=== PATIENT | female | born 1990 | race Caucasian/White ===

== ENCOUNTER → 2017-05-04 | Outpatient (CLI) | payer BC ==
[2017-05-08 02:18] LABS: CHLAMYDIA TRACH RNA*** NOT DETECTED (NOT DETECTED); GC (NEIS GONORRHOEAE)RNA** NOT DETECTED (NOT DETECTED)
== END | disposition home or self-care (01) ==
LOC: C.LABSPEC 17:32
PROVIDERS: ATTEND Physician Assistant
DX: Z01.419 Encounter for gynecological examination (general) (routine) without abnormal findings (principal)

== ENCOUNTER → 2017-05-04 | Outpatient (CLI) | payer BC | END | disposition home or self-care (01) | LOC: C.PAPS 10:09 | PROVIDERS: ATTEND Physician Assistant | DX: Z01.411 Encounter for gynecological examination (general) (routine) with abnormal findings (principal); R87.610 Atypical squamous cells of undetermined significance on cytologic smear of cervix (ASC-US) ==

== ENCOUNTER 2024-07-10 03:39 | Observation (INO) ==
[2024-07-10] MEDS: ACETAMINOPHEN 500 MG TAB PO STA (04:20)
[2024-07-10] MEDS: SODIUM CHLORIDE 0.9% 500 ML IV ONE (04:21)
[2024-07-10] MEDS: KETOROLAC TROMETHAMINE 15 MG/ML VIAL IV STA (04:21)
[2024-07-10] MEDS: ONDANSETRON INJ 2 MG/ML 2 ML VIAL IV STA (04:21)
--- NOTE | 2024-07-10 04:21 | Emergency Department Note ---
Impression & Plan Acute appendicitis, Abdominal pain, Nausea, Diarrhea ED Provider Note NAME: JESENIA PANDYA AGE: 33 SEX: F : 1990 ARRIVES VIA: Walk-In INFORMANT: Patient, friend ED PROVIDER(S): Brody Dalton MD CHIEF COMPLAINT: Abdominal cramping, diarrhea, right lower quadrant pain MEDICAL DECISION MAKING: Patient presents for the above. Though the patient has had symptoms consistent with an enteritis the patient does appear to be focally tender in the right lower quadrant and does have positive obturators. IV was established and blood work was obtained along with CT abdomen pelvis. BioFire also performed. Patient was ordered IV Toradol fluids and Zofran and was given p.o. Tylenol. Upon assessment the patient did feel improved. The patient has a white count of 15 with a normal H&H and platelet count. Kidney function is unremarkable. Mild hyponatremia at 134 with a BSG 126 nonfasting not DKA. Urinalysis does not show evidence of obvious infection. BioFire negative. The patient CT abdomen and pelvis does show concerns for acute appendicitis. I did inform the patient of these findings. Patient pain is improved. I did speak the on-call general surgeon Dr. Rodriguez and the patient was to be taken to the OR for operative management. Prior to this the patient was ordered Mefoxin. Patient does have penicillin allergy but did discuss with pharmacy who stated it should be reasonable to monitor for symptoms. No symptoms while here in the department. Discussion w/ other healthcare providers: Dr. Rodriguez general surgery Prior /Outside records reviewed: none Differential diagnosis: Appendicitis, ovarian cyst, ovarian torsion, ectopic , TOA, PID, diverticulitis, UTI, obstruction, inflammatory bowel disease, renal colic, PUD, pancreatitis, biliary pathology, hernia, volvulus, constipation, as well as other pathologies were considered. Diagnostics, as interpreted by me: ECG: none Cardiac monitoring: An order was placed for continuous cardiac monitoring. The monitor shows a rate of 106 with tachycardic and regular rhythm. Patient was placed on pulse oximetry Medical decision rules: none Imaging studies: I informally interpreted the patient's CT abdomen pelvis does show concerns for acute appendicitis with formal report to follow. HPI: Patient presents due to concern for right lower quadrant pain and diarrhea. Patient states that about 2 nights ago the patient developed decreased appetite states that she ate a bowl of popcorn had a popsicle and then early yesterday morning the patient had diarrhea from about 2 to 10 AM. The patient is had no further diarrhea but did have some nausea but without vomiting. The patient states that she has had intense crampy pain primarily in her lower abdomen but more prominently focal in the right lower quadrant. Patient denies any blood in urine or stool and no dysuria. Patient [place] any vaginal bleeding or discharge. LMP was 2 weeks prior. Patient denies any trauma. No known sick contacts or any recent travel. No changes in diet. Patient denies any recent antibiotic use. Patient has been taking Pepto-Bismol at home. Patient states that because the cramps have been intense and more focal in the right lower quadrant which is why she presented today. PAST MEDICAL HISTORY: See Below PAST SURGICAL HISTORY: See Below SOCIAL HISTORY: See Below HOME MEDICATIONS: See Below ALLERGIES: See Below VITALS: See Below PHYSICAL EXAMINATION: GENERAL: NAD, non-toxic. EYE EXAM: Normal conjunctiva. PERRL, no anisocoria and EOM's grossly intact w/o pain. OROPHARYNX: Moist mucus membranes, grossly normal dentition. NECK: Trachea midline, no stridor. Supple, no nuchal rigidity, no adenopathy, non-tender. No signs of meningismus. FROM of the neck with good chin to chest and neck extension. LUNGS: Clear to auscultation. Normal chest wall mechanics. HEART: NSR, no MRG. ABDOMEN: Abdomen soft, suprapubic and right lower quadrant pain most prominent in the right lower quadrant without other abdominal pain, not peritonitic, positive obturators, negative psoas no masses, no rebound or guarding. BACK: No CVA TTP. SKIN: No rashes and no bruising. UPPER EXTREMITIES: Upper extremities are grossly normal. LOWER EXTREMITIES: Grossly normal, no edema. NEURO EXAM: A&O x3, cranial nerves II-XII grossly intact, normal speech, moves all 4 extremities. Past Med/Surg History Problem List (Updated 07/10/24 @ 07:03 by Brody Dalton MD) Diarrhea (Acute) Nausea (Acute) Abdominal pain (Acute) Acute appendicitis (Acute) Acute appendicitis Medical History No pertinent past medical history Surgical History No pertinent past surgical history Social History Smoking Status: Never smoker Tobacco Type: Smokeless Tobacco (Dip or Chew) Hx Alcohol Use: No Hx Substance Use: No Preferred Language: Yi Feels Safe at Home: Yes Allergies Allergies Allergy/AdvReac Type Severity Reaction Status Date / Time Penicillins Allergy Severe Hives Unverified 06/22/24 08:24 Home Meds Previous Rx's Medication Instructions Recorded hydrocodone 5 mg-acetaminophen 325 1 tab PO Q6H PRN pain #4 tabs 06/22/24 mg tablet Results & Data (ED) Vital Signs Vital Signs - 24 hr 07/10/24 03:48 07/10/24 04:49 07/10/24 06:00 Temperature 37.0 C Temperature Source Oral Pulse Rate 125 H Pulse Rate [Finger] 89 101 H Pulse Rhythm [Finger] Pulse Strength [Finger] Respiratory Rate 18 16 18 Respiratory Effort / Characteristics Non-Labored Spontaneous Respiratory Depth Normal Respiratory Pattern Regular Blood Pressure 129/75 Blood Pressure [Left Arm] 119/85 121/79 Blood Pressure Mean 93 Blood Pressure Mean [Left Arm] 96 93 Blood Pressure Position Sitting Blood Pressure Position [Left Arm] Pulse Oximetry 97 96 98 Oxygen Delivery Method Room Air Room Air Room Air Sepsis Recent Fever Within 48 Hours No Sepsis New/Unexplained Change in Mental Status N/A Sepsis Action Taken by Nursing No Action Required 07/10/24 06:35 07/10/24 06:40 Temperature 36.9 C Temperature Source Oral Pulse Rate 95 H Pulse Rate [Finger] 88 Pulse Rhythm [Finger] Regular Pulse Strength [Finger] Normal Respiratory Rate 18 20 Respiratory Effort / Characteristics Non-Labored Spontaneous Respiratory Depth Normal Respiratory Pattern Regular Blood Pressure 121/79 Blood Pressure [Left Arm] 110/93 Blood Pressure Mean Blood Pressure Mean [Left Arm] 98 Blood Pressure Position Blood Pressure Position [Left Arm] Lying Pulse Oximetry 99 99 Oxygen Delivery Method Room Air Room Air Sepsis Recent Fever Within 48 Hours Sepsis New/Unexplained Change in Mental Status Sepsis Action Taken by Long Term Medications Current Medication List: was personally reviewed by me Laboratory Data Attestation: I reviewed the patient's lab results. 07/10/24 04:05 07/10/24 04:05 Lab Results 07/10/24 07/10/24 Range/Units 04:05 04:25 WBC 15.18 H (4.8-10.8) K/ul RBC 4.32 (4.20-5.40) M/uL Hgb 12.9 (12.0-16.0) g/dl Hct 38.0 (37.0-47.0) % MCV 88.0 (80.0-100.0) fL MCH 29.9 (25.0-34.0) pg MCHC 33.9 (32.0-36.0) g/dL RDW Std Deviation 38.1 (36.4-46.3) fL RDW Coeff of Heather 11.9 (11.5-14.5) % Plt Count 196 (130-400) K/uL MPV 10.2 (9.4-12.4) fL Immature Gran % (Auto) 0.3 % Neut % (Auto) 80.2 % Lymph % (Auto) 10.7 % Wythe % (Auto) 8.5 % Eos % (Auto) 0.1 % Baso % (Auto) 0.2 % Neut # (Auto) 12.18 H (1.40-6.50) K/uL Lymph # (Auto) 1.62 (1.20-3.40) K/uL Wythe # (Auto) 1.29 H (0.11-0.59) K/uL Eos # (Auto) 0.01 (0.00-0.50) K/uL Baso # (Auto) 0.03 (0.00-0.20) K/uL Immature Gran # (Auto) 0.05 (0.01-0.20) K/uL Sodium 134 L (136-145) mmol/L Potassium 3.5 (3.5-5.1) mmol/L Chloride 101 (98-107) mmol/L Carbon Dioxide 25 (21-32) mmol/L Anion Gap 8 (3-11) BUN 5 L (6-23) mg/dl Creatinine 0.76 (0.6-1.2) mg/dl Est Cr Clr Drug Dosing 116.3 ml/min eGFR 106.70 BUN/Creatinine Ratio 6.6 L (10-20) Glucose 126 H (70-99(Fasting)) mg/dl Calcium 9.2 (8.6-10.3) mg/dl Total Bilirubin 0.7 (0.2-1.0) mg/dl AST 11 L (13-39) U/L ALT 9 (7-52) U/L Alkaline Phosphatase 58 (34-104) U/L Total Protein 7.6 (6.0-8.3) gm/dl Albumin 4.5 (3.4-5.0) gm/dl Globulin 3.1 (2.5-4.0) gm/dl Albumin/Globulin Ratio 1.5 (0.9-2) Lipase 10 L (11-82) U/L Urine Color Yellow Urine Appearance Cloudy A (Clear) Urine pH 5.5 (4.5-7.5) Ur Specific Peterson 1.016 (1.000-1.030) Urine Protein Trace H (Negative) Urine Glucose (UA) Negative (Negative) Urine Ketones 1+ H (Negative) Urine Blood 1+ H (Negative) Urine Nitrite Negative (Negative) Urine Bilirubin Negative (Negative) Urine Urobilinogen Negative (Negative) Ur Leukocyte Esterase Negative (Negative) Urine WBC (Auto) 0-5 (0-5) /hpf Urine RBC (Auto) 0-2 (0-2) /hpf U Hyaline Cast (Auto) 0-2 (0-2) /lpf U Epithel Cells (Auto) 11-20 H (0-2) /hpf Urine Bacteria (Auto) 2+ H (None Seen) Urine Test Negative (Negative) Adenovirus (PCR) Not Detected (NotDetected) B. pertussis DNA (PCR) Not Detected (NotDetected) B.parapertussis DNA PCR Not Detected (NotDetected) C. pneumoniae DNA (PCR) Not Detected (NotDetected) Coronavirus OC43 (PCR) Not Detected (NotDetected) Coronavirus HKU1 (PCR) Not Detected (NotDetected) Coronavirus 229E (PCR) Not Detected (NotDetected) SARS-CoV-2 (PCR) Not Detected (NotDetected) Coronavirus NL63 (PCR) Not Detected (NotDetected) Human Metapneumovir PCR Not Detected (NotDetected) Influenza Type A (PCR) Not Detected (NotDetected) Influenza Type B (PCR) Not Detected (NotDetected) M. pneumoniae (PCR) Not Detected (NotDetected) Parainfluenza 1 (PCR) Not Detected (NotDetected) Parainfluenza 2 (PCR) Not Detected (NotDetected) Parainfluenza 3 (PCR) Not Detected (NotDetected) Parainfluenza 4 (PCR) Not Detected (NotDetected) RSV (PCR) Not Detected (NotDetected) Entero/Rhino (PCR) Not Detected (NotDetected) Administered Medications Discontinued Medications Acetaminophen (Acetaminophen 500 Mg Tab) 1,000 mg PO NOW STA Stop: 07/10/24 04:12 Last Admin: 07/10/24 04:20 Dose: 1,000 mg Documented By: MOISE Sodium Chloride (Nss) 500 mls @ 999 mls/hr IV .Q31M ONE Stop: 07/10/24 04:45 Last Infusion: 07/10/24 04:58 Dose: Infused Documented By: Admin: 07/10/24 04:21 Dose: 999 mls/hr Documented By: MOISE Cefoxitin Sodium (Mefoxin) 2,000 mg in 60 mls @ 100 mls/hr IV NOW STA Stop: 07/10/24 06:38 Last Infusion: 07/10/24 06:40 Dose: 0 mls/hr Documented By: Admin: 07/10/24 06:13 Dose: 100 mls/hr Documented By: MOISE Ioversol (Optiray 320 100ml) 100 ml IV ONCE ONE Stop: 07/10/24 04:41 Last Admin: 07/10/24 04:42 Dose: 93 ml Documented By: STEFANO Ketorolac Tromethamine (Ketorolac Tromethamine 15 Mg/Ml Vial) 10 mg IV NOW STA Stop: 07/10/24 04:12 Last Admin: 07/10/24 04:21 Dose: 10 mg Documented By: MOISE Ondansetron HCl (Ondansetron Inj 2 Mg/Ml 2 Ml Vial) 4 mg IV NOW STA Stop: 07/10/24 04:12 Last Admin: 07/10/24 04:21 Dose: 4 mg Documented By: MOISE Imaging Data Radiologist's Impression: Abdomen/Pelvis CT 07/10/24 04:14 EXAM: CT abd pelvis IV con only CLINICAL HISTORY: suprapubic and RLQ pain. TECHNIQUE: CT of the abdomen and pelvis was performed with and without 93 ML OPTIRAY 320 contrast, with the following protocol: axial images with, and reconstructed coronal and sagittal images. One of the following dose reduction techniques was utilized for this exam: Automated exposure control, adjustment of the mA and/or kV according to patient size, and use of iterative reconstruction. COMPARISON: None. FINDINGS: Abdomen: Liver: Normal in size, shape, and density. No focal lesions, cysts, or masses were identified. Hepatic vasculature and biliary ducts are unremarkable. Gallbladder and Biliary System: The gallbladder is normal in size and shape. No wall thickening, pericholecystic fluid, or gallstones were identified. The common bile duct is normal in caliber without dilation. Pancreas: Pancreatic head, body, and tail are visualized and appear normal in size and density. No pancreatic masses or calcifications were noted. The pancreatic duct is not dilated. Spleen: Normal in size, shape, and density. No splenic lesions or masses were identified. Appendix: The appendix is normal in size without amaury appendiceal fat stranding, and without an appendicolith. No evidence of appendiceal abscess or perforation. Kidneys and Adrenal Glands: Both kidneys are normal in size, shape, and position. Cortical thickness is within normal limits. No renal calculi or hydronephrosis. Adrenal glands are unremarkable with no evidence of masses or hyperplasia. Appendix: The appendix is thickened with an edematous wall, the appendix diameter measures 1.3cm with moderate amaury appendiceal fat stranding, suggesting acute appendicitis. Pelvis: Urinary Bladder: Normal in contour and wall thickness. No intraluminal lesions identified. Uterus: Normal in size and contour. No masses or abnormal thickening. Ovaries: Not well visualized but no gross abnormalities noted. Vagina: Normal in contour and wall thickness. Cervix: No evidence of mass or abnormal thickening. Peritoneal and Retroperitoneal Structures: Trace of free fluid in the pelvis. No lymphadenopathy was noted. Bowel: The visualized bowel loops are normal in caliber and appearance. No evidence of bowel obstruction or wall thickening. Bones and Soft Tissues: Pelvic bones and soft tissues are unremarkable. No fractures or abnormal masses were identified. IMPRESSION: 1. The appendix is thickened with an edematous wall, the appendix diameter measures 1.3 cm with moderate amaury appendiceal fat stranding, suggesting acute appendicitis. 2. Trace of free fluid in the pelvis. Electronically signed by Will Nair 07-10-2024 05:40 AM Discharge Plan Visit Data Chief Complaint: Abdominal Pain Stated Complaint: RT LOWER ABD PAIN ED Provider: Brody Dalton Discharge Problem: Acute appendicitis, Abdominal pain, Nausea, Diarrhea Discharge Instructions Interventions: ED Discharge Assessment Last Done: 07/10/24 06:35 Forms Stand Alone Forms: Ivett Hernandez [email or web address] Prescriptions Prescriptions: No Action hydrocodone-acetaminophen 5-325 mg tablet 1 tab PO Q6H PRN (Reason: pain) Qty: 4 0RF Rx Instructions: initial script Referrals Referrals: PCP,NO [Primary Care Provider] - Discharge Problem: Acute appendicitis Qualifiers: Acute appendicitis type: with localized peritonitis Appendicitis gangrene presence: without gangrene Appendicitis perforation presence: without perforation Appendicitis abscess presence: without abscess Qualified Code(s): K 35.30 - Acute appendicitis with localized peritonitis, without perforation or gangrene Abdominal pain Qualifiers: Abdominal location: right lower quadrant Qualified Code(s): R10.31 - Right lower quadrant pain Diarrhea Qualifiers: Diarrhea type: unspecified type Qualified Code(s): R19.7 - Diarrhea, unspecified
[2024-07-10 04:35] LABS: Basophils # (auto) 0.03 K/uL (0.00-0.20); Basophils % (auto) 0.2 %; Eosinophils # (auto) 0.01 K/uL (0.00-0.50); Eosinophils % (auto) 0.1 %; Hemoglobin 12.9 g/dl (12.0-16.0); Immature Granulocytes # (auto) 0.05 K/uL (0.01-0.20); Immature Granulocytes % (auto) 0.3 %; Lymphocytes # (auto) 1.62 K/uL (1.20-3.40); Lymphocytes % (auto) 10.7 %; Mean Corpuscular Hemoglobin 29.9 pg (25.0-34.0); Mean Corpuscular Hgb Conc 33.9 g/dL (32.0-36.0); Mean Platelet Volume 10.2 fL (9.4-12.4); Monocytes # (auto) 1.29 K/uL (0.11-0.59); Monocytes % (auto) 8.5 %; Neutrophils # (auto) 12.18 K/uL (1.40-6.50); Neutrophils % (auto) 80.2 %; Platelet Count 196 K/uL (130-400); Pregnancy Test, Urine Negative (Negative); RDW Coefficient of Variation 11.9 % (11.5-14.5); RDW Standard Deviation 38.1 fL (36.4-46.3); Red Blood Count 4.32 M/uL (4.20-5.40); White Blood Count 15.18 K/ul (4.8-10.8)
[2024-07-10 04:40] LABS: Appearance Urine Cloudy (Clear); Bacteria Urine Automated 2+ (None Seen); Bilirubin Urine Negative (Negative); Blood Urine 1+ (Negative); Cast Urine Automated 0-2 /lpf (0-2); Color Urine Yellow; Glucose Urine UA Negative (Negative); Ketones Urine 1+ (Negative); Leukocyte Esterase Urine Negative (Negative); Nitrite Urine Negative (Negative); Protein Urine Trace (Negative); RBC Urine Automated 0-2 /hpf (0-2); Specific Gravity Urine 1.016 (1.000-1.030); Urobilinogen Urine Negative (Negative); WBC Urine Automated 0-5 /hpf (0-5); pH Urine 5.5 (4.5-7.5)
[2024-07-10] MEDS: OPTIRAY 320 100ml IV ONE (04:42)
--- OUTSIDE RECORDS SUMMARY | 2024-07-10 04:45 | External Medical Summary | Continuity of Care Document ---
Author Name Unknown Organization [facility] [address] [id number] Address [address] [place], [place] [id number] Encounter [facility] FINNBR [id number] Date(s): 06/23/24 - 06/23/24 [facility] [address] [facility] [address] [facility] [address] [place] [id number] Encounter Diagnosis Left ankle injury(Discharge Diagnosis) - 06/23/24 Discharge Disposition: Home or Self Care Attending Physician: MD Kerrie, Doni A Allergies, Adverse Reactions, Alerts Substance Criticality Severity Reaction Reaction Severity Status penicillins hives Active Assessment and Plan Extracted from: Title:Orthopaedics Office Visit Note Author:Jalen chew MD, Doni A Date:06/23/24 1.Left ankle injury IMPRESSION: Left ankleinjury,sprain, cannot rule outoccult fracture Acute Goals: Decrease pain PLAN: RICE. Short course of anti-inflammatories, alternating with Tylenol as needed for pain. Will place in a high tide Cam boot,may gradually progressto WABTin the boot offcrutches. Discussedankle ROMexercises that she may begin. Follow-up 2 weeks, if still having significant pain would repeatx-rays OOB. The patient understood all my instructions and explanation; all their questions were satisfactorily addressed. This chart was completed utilizing [employer] voice recognition software. Grammatical errors, random word insertions, pronoun errors, and incomplete sentences are an occasional consequence of the system. Any questions or concerns about the content, text, or information contained within the body of this dictation should be addressed directly to the author for clarification. Medications No Known Medications Mental Status 06/23/24 Barriers to Learning one year None evide nt Mandatory Health Literacy Documentation Yes Health Literacy Communication Barriers N ever Primary Language Slovak Problem List Condition Confirmation Course Effective Dates Status Health atus Informant Left ankle injury Confirmed Active Diagnosis Diagnosis Type Effective Dates Health Status Cl inical Service Informant Left ankle injury Discharge Diagnosis 06/23/24 Vital Signs Most recent to oldest [Reference Range]: 1 Height 162 cm (06/23/24 3:23 PM) Patient Weight 88 kg (06/23/24 3:23 PM) Body Mass Index 33.53 kg/m2 (06/23/24 3:23 PM) Social History Social History Type Response Smoking Status Never smoked cigaret milvia Sex Sex Representation Female (finding) Ortho Outpt Note * MD Kerrie, Doni A: PERFORM Event Display: Ortho Outpt Note Authored Date: [id number] Chief Complaint L ankle eval History of Present Illness Liliana kay pleasant 33-year-old female, whoinjured her left ankle06/21/2024t get air. Shewent to the emergency room where x-rays were obtained. She was splinted and sent to me for further evaluationand treatment. She has been taking Tylenol and ibuprofen and using hydrocodone at nightshecurrentlyrates her pain a 10/02 Review of Systems 14 pointreview of systems is noted in the EMR Physical Exam Vitals & Measurements HT:162cm WT:88.000kg(Dosing) WT:88kg BMI:33.53 Focusing on the patient's left lower extremity: 2+ DP pulse Sensation to light touch is intact Motor to the gastroc soleus, tibialis anterior, and EHL is 5/5. + Tenderness to palpation ATFL,peroneal tendons, distal fibula,posterior tib tendon. - Forefoot squeeze test. - Calf squeeze test. +Lateral >medial ankle swelling. - Anterior drawer. Diagnostic Results I reviewed theradiographs from 06/22/2024 in the [employer] system 3 views of the left ankleAP, mortise, and lateral,which show no acute fracture or dislocation. Thereis noted medial andlateral soft tissue swelling. Incidental finding of inferiorcalcaneal bony spur. Assessment/Plan 1.Left ankle injury IMPRESSION: Left ankleinjury,sprain, cannot rule outoccult fracture Acute Goals: Decrease pain PLAN: RICE. Short course of anti-inflammatories, alternating with Tylenol as needed for pain. Will place in a high tide Cam boot,may gradually progressto WABTin the boot offcrutches. Discussedankle ROMexercises that she may begin. Follow-up 2 weeks, if still having significant pain would repeatx-rays OOB. The patient understood all my instructions and explanation; all their questions were satisfactorilyaddressed. This chart was completed utilizing [employer] voice recognition software. Grammatical errors, random word insertions, pronoun errors, and incomplete sentences are an occasional consequence of the system. Any questions or concerns about the content, text, or information contained within thebody of this dictation should be addressed directly to the author for clarification. Problem List/Past Medical History Ongoing Left ankle injury Allergies penicillinshives Social History Smoking Status Never smoked cigarettes Mitts toalcohol use not often. Denieschemical dependency and Family History Cancer and diabetes Recommendations Health Maintenance Pending(in the next year) OverDue Adult Influenza Vaccine due12/23/23and every 1year Due Adult Folic Acid Supplementation due06/23/24and every 3year Satisfied(in the past 1 year) There are no satisfied recommendations within the defined date range Electronic Signature on File Electronically Reviewed/Signed by: Doni Sy MD Author Signature Dt/Tm:06/23/2024 04:31 PM [facility] Supervisor [employer] Department of Orthopaedics and Rehabilitation [facility] [address], [place] [address] DAB
--- OUTSIDE RECORDS SUMMARY | 2024-07-10 04:45 | External Medical Summary | Continuity of Care Document ---
Author Name Unknown Organization [facility] [address] [id number] Address [address] [place], [place] [id number] Encounter [facility] [id number] Date(s): 06/23/24 - 06/23/24 [facility] [address] [facility] [address] [facility] [address] [place] [id number] Encounter Diagnosis Left ankle injury(Discharge Diagnosis) - [...] satisfactorily addressed. This chart was completed utilizing [employer] voice recognition software. Grammatical errors, random word [...] Literacy Communication Barriers N ever Primary Language Haitian Problem List Condition Confirmation Course Effective Dates [...] Event Display: Ortho Outpt Note Authored Date: [id number] Chief Complaint L ankle eval History of [...] I reviewed theradiographs from 06/22/2024 in the [employer] system 3 views of the left ankleAP, [...] were satisfactorilyaddressed. This chart was completed utilizing [employer] voice recognition software. Grammatical errors, random word [...] Sy MD Author Signature Dt/Tm:06/23/2024 04:31 PM [facility] Ticket Maker Department of Orthopaedics and Rehabilitation [facility] [address], [place] [address] DAB
[2024-07-10 04:51] LABS: Albumin Globulin Ratio 1.5 (0.9-2); Albumin Level 4.5 gm/dl (3.4-5.0); BUN Creatinine Ratio 6.6 (10-20); Bilirubin,Total 0.7 mg/dl (0.2-1.0); Calcium 9.2 mg/dl (8.6-10.3); Creatinine Clr Calc Pharmacy 116.3 ml/min; Globulin 3.1 gm/dl (2.5-4.0); Potassium 3.5 mmol/L (3.5-5.1); Total Protein 7.6 gm/dl (6.0-8.3)
[2024-07-10 05:31] LABS: Adenovirus PCR Not Detected (NotDetected); Bordetella parapertussis PCR Not Detected (NotDetected); Bordetella pertussis PCR Not Detected (NotDetected); Chlamydia pneumoniae PCR Not Detected (NotDetected); Coronavirus 229E PCR Not Detected (NotDetected); Coronavirus CoV-2 (COVID19)PCR Not Detected (NotDetected); Coronavirus HKU1 PCR Not Detected (NotDetected); Coronavirus NL63 PCR Not Detected (NotDetected); Coronavirus OC43PCR Not Detected (NotDetected); Human Metapneumovirus PCR Not Detected (NotDetected); Influenza A PCR Not Detected (NotDetected); Influenza B PCR Not Detected (NotDetected); Mycoplasma pneumoniae PCR Not Detected (NotDetected); Parainfluenza Virus 1 PCR Not Detected (NotDetected); Parainfluenza Virus 2 PCR Not Detected (NotDetected); Parainfluenza Virus 3 PCR Not Detected (NotDetected); Parainfluenza Virus 4 PCR Not Detected (NotDetected); Respiratory Syncytial VirusPCR Not Detected (NotDetected); Rhinovirus/Enterovirus PCR Not Detected (NotDetected)
--- NOTE | 2024-07-10 05:40 | CT Scan Report ---
EXAM: CT abd pelvis IV con only CLINICAL HISTORY: suprapubic and RLQ pain. TECHNIQUE: CT of the abdomen and pelvis was performed with and without 93 ML OPTIRAY 320 contrast, with the following protocol: axial images with, and reconstructed coronal and sagittal images. One of the following dose reduction techniques was utilized for this exam: Automated exposure control, adjustment of the mA and/or kV according to patient size, and use of iterative reconstruction. COMPARISON: None. FINDINGS: Abdomen: Liver: Normal in size, shape, and density. No focal lesions, cysts, or masses were identified. Hepatic vasculature and biliary ducts are unremarkable. Gallbladder and Biliary System: The gallbladder is normal in size and shape. No wall thickening, pericholecystic fluid, or gallstones were identified. The common bile duct is normal in caliber without dilation. Pancreas: Pancreatic head, body, and tail are visualized and appear normal in size and density. No pancreatic masses or calcifications were noted. The pancreatic duct is not dilated. Spleen: Normal in size, shape, and density. No splenic lesions or masses were identified. Appendix: The appendix is normal in size without amaury appendiceal fat stranding, and without an appendicolith. No evidence of appendiceal abscess or perforation. Kidneys and Adrenal Glands: Both kidneys are normal in size, shape, and position. Cortical thickness is within normal limits. No renal calculi or hydronephrosis. Adrenal glands are unremarkable with no evidence of masses or hyperplasia. Appendix: The appendix is thickened with an edematous wall, the appendix diameter measures 1.3cm with moderate amaury appendiceal fat stranding, suggesting acute appendicitis. Pelvis: Urinary Bladder: Normal in contour and wall thickness. No intraluminal lesions identified. Uterus: Normal in size and contour. No masses or abnormal thickening. Ovaries: Not well visualized but no gross abnormalities noted. Vagina: Normal in contour and wall thickness. Cervix: No evidence of mass or abnormal thickening. Peritoneal and Retroperitoneal Structures: Trace of free fluid in the pelvis. No lymphadenopathy was noted. Bowel: The visualized bowel loops are normal in caliber and appearance. No evidence of bowel obstruction or wall thickening. Bones and Soft Tissues: Pelvic bones and soft tissues are unremarkable. No fractures or abnormal masses were identified. IMPRESSION: 1. The appendix is thickened with an edematous wall, the appendix diameter measures 1.3 cm with moderate amaury appendiceal fat stranding, suggesting acute appendicitis. 2. Trace of free fluid in the pelvis. Electronically signed by Will Nair 07-10-2024 05:40 AM
[2024-07-10] MEDS: cefOXitin 2,000 MG/60 ML BAG IV STA (06:13)
[2024-07-10] MEDS: LR 15ML/HR IV SCH (06:45)
[2024-07-10] MEDS ORDERED: KETOROLAC 30 MG/ML VIAL ONE (06:52)
[2024-07-10] MEDS ORDERED: MIDAZOLAM HCL 1 MG/ML 2ML VIAL ONE (06:52)
[2024-07-10] MEDS ORDERED: LIDOCAINE 2% 2 ML VIAL/AMP(20MG/ML) INFIL ONE (06:52)
[2024-07-10] MEDS ORDERED: DEXAMETHASONE SOD INJ 4 MG/ML VIAL ONE (06:52)
[2024-07-10] MEDS ORDERED: PROPOFOL IV EMULSION 10 MG/ML 20 ML VIAL IV ONE (06:52)
[2024-07-10] MEDS ORDERED: ROCURONIUM BROMIDE 10 MG/ML 5 ML VIAL IV ONE ×2 (06:52→06:55)
[2024-07-10] MEDS ORDERED: ONDANSETRON INJ 2 MG/ML 2 ML VIAL ONE (06:52)
[2024-07-10] MEDS ORDERED: SUGAMMADEX SODIUM 200 MG/2 ML VIAL IV ONE (06:53)
[2024-07-10] MEDS ORDERED: fentaNYL citrate PF 100 MCG/2 ML VIAL ONE ×2 (06:53→07:34)
--- NOTE | 2024-07-10 06:56 | History & Physical Report ---
Date of Service July 10, 2024 Assessment & Plan (1) Acute appendicitis: Plan: 33-year-old woman presents with acute appendicitis. I discussed the risks and benefits of a laparoscopic appendectomy, possible open. All her questions were answered and she is agreeable to proceed. Consent has been obtained. Will take her to the operating room at the earliest convenience. History of Present Illness Primary Care Provider: NO PCP 33-year-old presents with a 36-hour history of lower abdominal pain, sharp and stabbing character. She also has a background dull pain associated with this. She endorses fevers and chills. She has been nauseated but has not vomited. She last ate yesterday evening. Bowel movements have been normal. CT scan demonstrates acute appendicitis. Allergies Allergy/AdvReac Type Severity Reaction Status Date / Time Penicillins Allergy Severe Hives Unverified 06/22/24 08:24 Home Medications Medication Instructions Recorded Confirmed Type hydrocodone 5 mg-acetaminophen 325 1 tab PO Q6H PRN pain #4 tabs 06/22/24 Rx mg tablet Past Med/Surg History Problem List (Updated 07/10/24 @ 07:01 by Major Rodriguez MD) Acute appendicitis Medical History No pertinent past medical history Surgical History No pertinent past surgical history Social History Smoking Status: Never smoker Tobacco Type: Smokeless Tobacco (Dip or Chew) Hx Alcohol Use: No Hx Substance Use: No Preferred Language: Serbian Feels Safe at Home: Yes Review of Systems Review of Systems: All systems reviewed & are unremarkable except as noted in HPI & below Physical Exam Constitutional: WD/WN, vitals as above Eyes: PERRL, conjunctivae normal, anicteric sclerae Neck: trachea midline, no thyromegaly Respiratory: normal respiratory effort, lungs clear to auscultation Cardiovascular: RRR, no murmur, no edema Gastrointestinal (Abdomen): Inspection/Auscultation: abdomen normal to inspection; abdomen not distended Percussion/Palpation: + abdomen tender ( Right lower quadrant/left lower quadrant) and abdomen soft; no guarding and abdomen not rigid Skin: no rashes, warm and dry Psychiatric: A+Ox3, euthymic affect Results & Data Results & Data Vital Signs (Past 12 Hours) Vital Signs Temp Pulse Pulse Resp BP BP Pulse Ox 07/10/24 06:40 36.9 C 88 20 110/93 99 07/10/24 06:35 95 H 18 121/79 99 07/10/24 06:00 101 H 18 121/79 98 07/10/24 04:49 89 16 119/85 96 07/10/24 03:48 37.0 C 125 H 18 129/75 97 O2 Del Method 07/10/24 06:40 Room Air 07/10/24 06:35 Room Air 07/10/24 06:00 Room Air 07/10/24 04:49 Room Air 07/10/24 03:48 Room Air Laboratory Results 07/10/24 07/10/24 Range/Units 04:25 04:05 WBC 15.18 H (4.8-10.8) K/ul RBC 4.32 (4.20-5.40) M/uL Hgb 12.9 (12.0-16.0) g/dl Hct 38.0 (37.0-47.0) % MCV 88.0 (80.0-100.0) fL MCH 29.9 (25.0-34.0) pg MCHC 33.9 (32.0-36.0) g/dL RDW Std Deviation 38.1 (36.4-46.3) fL RDW Coeff of Heather 11.9 (11.5-14.5) % Plt Count 196 (130-400) K/uL MPV 10.2 (9.4-12.4) fL Immature Gran % (Auto) 0.3 % Neut % (Auto) 80.2 % Lymph % (Auto) 10.7 % [place] % (Auto) 8.5 % Eos % (Auto) 0.1 % Baso % (Auto) 0.2 % Neut # (Auto) 12.18 H (1.40-6.50) K/uL Lymph # (Auto) 1.62 (1.20-3.40) K/uL [place] # (Auto) 1.29 H (0.11-0.59) K/uL Eos # (Auto) 0.01 (0.00-0.50) K/uL Baso # (Auto) 0.03 (0.00-0.20) K/uL Immature Gran # (Auto) 0.05 (0.01-0.20) K/uL Sodium 134 L (136-145) mmol/L Potassium 3.5 (3.5-5.1) mmol/L Chloride 101 (98-107) mmol/L Carbon Dioxide 25 (21-32) mmol/L Anion Gap 8 (3-11) BUN 5 L (6-23) mg/dl Creatinine 0.76 (0.6-1.2) mg/dl Est Cr Clr Drug Dosing 116.3 ml/min eGFR 106.70 BUN/Creatinine Ratio 6.6 L (10-20) Glucose 126 H (70-99(Fasting)) mg/dl Calcium 9.2 (8.6-10.3) mg/dl Total Bilirubin 0.7 (0.2-1.0) mg/dl AST 11 L (13-39) U/L ALT 9 (7-52) U/L Alkaline Phosphatase 58 (34-104) U/L Total Protein 7.6 (6.0-8.3) gm/dl Albumin 4.5 (3.4-5.0) gm/dl Globulin 3.1 (2.5-4.0) gm/dl Albumin/Globulin Ratio 1.5 (0.9-2) Lipase 10 L (11-82) U/L Urine Color Yellow Urine Appearance Cloudy A (Clear) Urine pH 5.5 (4.5-7.5) Ur Specific [place] 1.016 (1.000-1.030) Urine Protein Trace H (Negative) Urine Glucose (UA) Negative (Negative) Urine Ketones 1+ H (Negative) Urine Blood 1+ H (Negative) Urine Nitrite Negative (Negative) Urine Bilirubin Negative (Negative) Urine Urobilinogen Negative (Negative) Ur Leukocyte Esterase Negative (Negative) Urine WBC (Auto) 0-5 (0-5) /hpf Urine RBC (Auto) 0-2 (0-2) /hpf U Hyaline Cast (Auto) 0-2 (0-2) /lpf U Epithel Cells (Auto) 11-20 H (0-2) /hpf Urine Bacteria (Auto) 2+ H (None Seen) Urine Test Negative (Negative) Adenovirus (PCR) Not Detected (NotDetected) B. pertussis DNA (PCR) Not Detected (NotDetected) B.parapertussis DNA PCR Not Detected (NotDetected) C. pneumoniae DNA (PCR) Not Detected (NotDetected) Coronavirus OC43 (PCR) Not Detected (NotDetected) Coronavirus HKU1 (PCR) Not Detected (NotDetected) Coronavirus 229E (PCR) Not Detected (NotDetected) SARS-CoV-2 (PCR) Not Detected (NotDetected) Coronavirus NL63 (PCR) Not Detected (NotDetected) Human Metapneumovir PCR Not Detected (NotDetected) Influenza Type A (PCR) Not Detected (NotDetected) Influenza Type B (PCR) Not Detected (NotDetected) M. pneumoniae (PCR) Not Detected (NotDetected) Parainfluenza 1 (PCR) Not Detected (NotDetected) Parainfluenza 2 (PCR) Not Detected (NotDetected) Parainfluenza 3 (PCR) Not Detected (NotDetected) Parainfluenza 4 (PCR) Not Detected (NotDetected) RSV (PCR) Not Detected (NotDetected) Entero/Rhino (PCR) Not Detected (NotDetected) Diagnostic Findings EXAM: CT abd pelvis IV con only CLINICAL HISTORY: suprapubic and RLQ pain. TECHNIQUE: CT of the abdomen and pelvis was performed with and without 93 ML OPTIRAY 320 contrast, with the following protocol: axial images with, and reconstructed coronal and sagittal images. One of the following dose reduction techniques was utilized for this exam: Automated exposure control, adjustment of the mA and/or kV according to patient size, and use of iterative reconstruction. COMPARISON: None. FINDINGS: Abdomen: Liver: Normal in size, shape, and density. No focal lesions, cysts, or masses were identified. Hepatic vasculature and biliary ducts are unremarkable. Gallbladder and Biliary System: The gallbladder is normal in size and shape. No wall thickening, pericholecystic fluid, or gallstones were identified. The common bile duct is normal in caliber without dilation. Pancreas: Pancreatic head, body, and tail are visualized and appear normal in size and density. No pancreatic masses or calcifications were noted. The pancreatic duct is not dilated. Spleen: Normal in size, shape, and density. No splenic lesions or masses were identified. Appendix: The appendix is normal in size without amaury appendiceal fat stranding, and without an appendicolith. No evidence of appendiceal abscess or perforation. Kidneys and Adrenal Glands: Both kidneys are normal in size, shape, and position. Cortical thickness is within normal limits. No renal calculi or hydronephrosis. Adrenal glands are unremarkable with no evidence of masses or hyperplasia. Appendix: The appendix is thickened with an edematous wall, the appendix diameter measures 1.3cm with moderate amaury appendiceal fat stranding, suggesting acute appendicitis. Pelvis: Urinary Bladder: Normal in contour and wall thickness. No intraluminal lesions identified. Uterus: Normal in size and contour. No masses or abnormal thickening. Ovaries: Not well visualized but no gross abnormalities noted. Vagina: Normal in contour and wall thickness. Cervix: No evidence of mass or abnormal thickening. Peritoneal and Retroperitoneal Structures: Trace of free fluid in the pelvis. No lymphadenopathy was noted. Bowel: The visualized bowel loops are normal in caliber and appearance. No evidence of bowel obstruction or wall thickening. Bones and Soft Tissues: Pelvic bones and soft tissues are unremarkable. No fractures or abnormal masses were identified. IMPRESSION: 1. The appendix is thickened with an edematous wall, the appendix diameter measures 1.3 cm with moderate amaury appendiceal fat stranding, suggesting acute appendicitis. 2. Trace of free fluid in the pelvis. Electronically signed by Will Nair 07-10-2024 05:40 AM (1) Acute appendicitis Acute appendicitis type: with localized peritonitis Appendicitis gangrene presence: without gangrene Appendicitis perforation presence: without perforation Appendicitis abscess presence: without abscess Qualified Code(s): K35.30 - Acute appendicitis with localized peritonitis, without perforation or gangrene
[2024-07-10] MEDS ORDERED: Nursing to Pharmacy Communication SCH (07:00)
--- NOTE | 2024-07-10 07:00 | Anesthesiology Consultation ---
Date of Service July 10, 2024 Assessment & Plan Chart Review Chart Review: Acceptable Risk for Surgery and Patient NOT seen in Pre Admission Testing Consults Requested none History Surgery Operation Date: 07/10/24 07:00 Proposed Procedures p Laparoscopic Appendectomy - Major Rodriguez MD Height/Weight Height: 5 ft 4 in Weight: 91.2 kg Allergies Allergy/AdvReac Type Severity Reaction Status Date / Time Penicillins Allergy Severe Hives Unverified 06/22/24 08:24 Medications Home Medications Medication Instructions Recorded Confirmed Last Taken hydrocodone 5 mg-acetaminophen 325 1 tab PO Q6H PRN pain #4 tabs 06/22/24 Unknown mg tablet NPO Date Last Intake of Fluids: 07/10/24 Time Last Intake of Fluids: 03:00 Date Last Intake of Solids: 07/09/24 Time Last Intake of Solids: 19:00 Past Medical History Medical History No pertinent past medical history Exercise / Class Metabolic Activity 1 > 8 Run/Swim/Ski/Tennis Past Surgical History Surgical History No pertinent past surgical history Past Anesthesia History No Hx of Anesthesia Complications and No Family Hx of Anesthesia Complications History of PONV No Hx of PONV and No Hx of Motion Sickness Social History Smoking Status: Never smoker Hx Alcohol Use: No Hx Substance Use: No Physical Exam Vital Signs Last Vital Signs Temp 36.9 C 07/10/24 06:40 Pulse 88 07/10/24 06:40 Resp 20 07/10/24 06:40 BP 110/93 07/10/24 06:40 Pulse Ox 99 07/10/24 06:40 O2 Del Method Room Air 07/10/24 06:40 Testing Laboratory Results 07/10/24 04:05 07/10/24 04:05 Urine Color Yellow 07/10/24 04:05 Urine Appearance Cloudy (Clear) A 07/10/24 04:05 Urine pH 5.5 (4.5-7.5) 07/10/24 04:05 Ur Specific [place] 1.016 (1.000-1.030) 07/10/24 04:05 Urine Protein Trace (Negative) H 07/10/24 04:05 Urine Glucose (UA) Negative (Negative) 07/10/24 04:05 Urine Ketones 1+ (Negative) H 07/10/24 04:05 Urine Nitrite Negative (Negative) 07/10/24 04:05 Ur Leukocyte Esterase Negative (Negative) 07/10/24 04:05 Urine WBC (Auto) 0-5 /hpf (0-5) 07/10/24 04:05 Urine RBC (Auto) 0-2 /hpf (0-2) 07/10/24 04:05 U Hyaline Cast (Auto) 0-2 /lpf (0-2) 07/10/24 04:05 U Epithel Cells (Auto) 11-20 /hpf (0-2) H 07/10/24 04:05 Urine Bacteria (Auto) 2+ (None Seen) H 07/10/24 04:05 Urine Test Negative (Negative) 07/10/24 04:05 07/10/24 04:05 Urine Test Negative
[2024-07-10] MEDS ORDERED: HYDROmorphone INJ 1 MG/ML SYRINGE IV PRN (07:02)
[2024-07-10] MEDS ORDERED: ONDANSETRON INJ 2 MG/ML 2 ML VIAL IV PRN ×2 (07:02→09:45)
[2024-07-10] MEDS ORDERED: PROMETHAZINE HCL 6.25 MG in SODIUM CHLORIDE 0.9% 50 ML IV PRN (07:02)
[2024-07-10] MEDS ORDERED: ATROPINE SULFATE 0.1 MG/ML 10ML SYR IV PRN (07:02)
[2024-07-10] MEDS ORDERED: ePHEDrine sulfate 50 MG/ML AMP IV PRN (07:02)
[2024-07-10] MEDS ORDERED: fentaNYL citrate PF 100 MCG/2 ML VIAL IV PRN (07:02)
[2024-07-10] MEDS: BUPIVACAINE/EPINEPHRINE 0.5% MPF 1:200,000 30 ML VIAL ONE (07:59)
--- NOTE | 2024-07-10 08:02 | Post Operative Brief Note ---
Immediate Post Op Note Date of Surgery July 10, 2024 Pre & Post Diagnosis Operation Date: 07/10/24 07:00 Pre-Op Diagnosis: Acute Appendicitis Post-Op Diagnosis: Acute Appendicitis I identified the patient and participated in the time-out.: Yes Procedure Operation Date: 07/10/24 07:00 Actual Procedures p Laparoscopic Appendectomy(Not Applicable) - Major Rodriguez MD Surgeon Major Rodriguez MD Substation Superintendent none Estimated Blood Loss 5 Findings Consistent with Post-Op Diagnosis
--- NOTE | 2024-07-10 08:03 | Operative Report ---
Post Operative Report Pre & Post Diagnosis Operation Date: 07/10/24 07:00 Pre-Op Diagnosis: Acute Appendicitis Post-Op Diagnosis: Acute Appendicitis I identified the patient and participated in the time-out.: Yes Procedure Operation Date: 07/10/24 07:00 Actual Procedures p Laparoscopic Appendectomy(Not Applicable) - Major Rodriguez MD Surgeon Major Rodriguez MD Clinical Case Manager none Estimated Blood Loss 5 Findings Consistent with Post-Op Diagnosis Acute appendicitis without perforation or abscess Specimens appendix Drains none Anesthesia Type General Complications none Description of Procedure the patient was taken to the operating room, and placed supine on the operating table. A timeout was performed, perioperative antibiotics were administered, SCD boots were placed. After adequate anesthesia and analgesia was obtained, the abdomen was prepped and draped in the normal sterile fashion. A 1 cm incision was made in the supraumbilical region and carried down to the l evel of the fascia. A trach hook was used to grasp the fascia and elevated and a varies needle was used to enter the abdominal cavity. The abdomen was insufflated to a pressure of 15 mmHg, and a 5 mm trocar was placed in this location. A 5 mm 30 degree laparoscope was placed into the abdominal cavity, and the abdomen was surveyed. The patient was placed in Trendelenburg and slightly to the left. One 5 mm trocar was placed in the right upper quadrant, and one 12 mm trocar was placed in the left lower quadrant under direct visualization. The right colon was identified and traced down to the cecum. The appendix was identified and elevated anteriorly and medially. A window was created at the base of the appendix with a [place] dissector. The Endo DEVORA stapler was used to transect the appendix at its base through noninflamed tissue, and subsequently the mesoappendix. The appendix was placed in an Endo Catch bag, and removed via the left lower quadrant port site. Attention was turned to hemostasis, which was excellent. The abdomen was copiously irrigated and suctioned free, and again hemostasis was found to be excellent. All trochars removed under direct visualization. The abdomen was desufflated. The fascia in the 12 mm port site was closed with a 0 Vicryl suture. The skin was closed with a running 4-0 Monocryl subcuticular stitch. Dermabond was applied. The patient tolerated the procedure without complication, and was transferred in stable condition to the PACU. All instrument, needle, and sponge counts were correct at the end of the case. I attest to the content of the Intraoperative Record and any orders documented therein. Any exceptions are noted below.
--- NOTE | 2024-07-10 08:54 | Anesthesiology Progress Note ---
Date of Service July 10, 2024 Anesthesia Post Procedure Vital Signs Vital Signs: Temp Pulse Pulse Pulse Resp BP BP 07/10/24 08:30 89 19 131/77 07/10/24 08:20 85 16 124/71 07/10/24 08:11 36.1 C L 97 H 12 122/82 07/10/24 06:40 36.9 C 88 20 110/93 07/10/24 06:35 95 H 18 121/79 07/10/24 06:00 101 H 18 121/79 07/10/24 04:49 89 16 119/85 07/10/24 03:48 37.0 C 125 H 18 129/75 Pulse Ox O2 Del Method O2 Flow Rate 07/10/24 08:30 100 Oxymask 4 07/10/24 08:20 100 Oxymask 8 07/10/24 08:11 94 Oxymask 8 07/10/24 06:40 99 Room Air 07/10/24 06:35 99 Room Air 07/10/24 06:00 98 Room Air 07/10/24 04:49 96 Room Air 07/10/24 03:48 97 Room Air Pain Intensity Abdomen: Pain Intensity: 6 Right Upper Abdomen: Pain Intensity: 6 Transfer of Care Handoff Completed per policy Notes Mental Status: alert / awake / arousable and participated in evaluation Patient Amnestic to Procedure: Yes Nausea / Vomiting: adequately controlled Pain: adequately controlled Airway Patency, RR, SpO2: stable & adequate BP & HR: stable & adequate Hydration State: stable & adequate Anesthetic Complications: no major complications apparent and Pt Satisfied with anesthetic care
[2024-07-10] MEDS ORDERED: MoRPHine SULFATE 2 MG/ML CARP IV PRN (09:45)
[2024-07-10] MEDS ORDERED: PROMETHAZINE 12.5 MG/50.5 ML BAG IV PRN (09:45)
[2024-07-10] MEDS ORDERED: oxyCODONE/ACETAMINOPHEN 5mg/325mg TAB PO PRN ×2 (09:45)
[2024-07-10] MEDS ORDERED: KETOROLAC 30 MG/ML VIAL IV PRN (09:45)
[2024-07-10] MEDS ORDERED: diphenhydrAMINE Capsule 25 MG CAP PO PRN (09:45)
[2024-07-10 09:54] VITALS: RESP 16
[2024-07-10 11:35] VITALS: BP 104/67; TEMP 97.7; O2SAT 94
[2024-07-10 14:32] VITALS: PULSE 90
--- NOTE | 2024-07-10 14:37 | Discharge Summary ---
Date of Service July 10, 2024 Admission HPI Per Admitting Provider 33-year-old presents with a 36-hour history of lower abdominal pain, sharp and stabbing character. She also has a background dull pain associated with this. She endorses fevers and chills. She has been nauseated but has not vomited. She last ate yesterday evening. Bowel movements have been normal. CT scan demonstrates acute appendicitis. Principal Diagnosis Acute appendicitis Discharge Exam Constitutional WD/WN, vitals as above cooperative and comfortable; no acute distress and not ill appearing Respiratory normal respiratory effort; no respiratory distress and no labored breathing Gastrointestinal (Abdomen) Inspection/Auscultation: abdomen normal to inspection, + abdominal wall ecchymosis (surrounding LLQ incision site) and + abdominal surgical incision (c/d/i with dermabond); abdomen not distended Percussion/Palpation: + abdomen tender (at incision sites appropriate postop) and abdomen soft; no guarding, abdomen not rigid and abdomen not firm Skin no rashes, warm and dry Psychiatric Orientation: alert and oriented x 3 Discharge Data Allergies Allergy/AdvReac Type Severity Reaction Status Date / Time Penicillins Allergy Severe Hives Unverified 06/22/24 08:24 Consultations 07/10/24 05:49 ED Decision to Admit Stat Procedures Performed Operation Date: 07/10/24 07:00 Actual Procedures p Laparoscopic Appendectomy(Not Applicable) - Major Rodriguez MD Ordered Studies 07/10/24 04:14 CT abd pelvis IV con only Stat Hospital Course (1) Acute appendicitis: Patient taken to operating room from emergency department for laparoscopic appendectomy. Found to have acute appendicitis without perforation or abscess. Patient tolerated procedure without difficulty and was transferred to recovery then to medical floor for postoperative care. Diet advanced as tolerated, activity as tolerated, pain management and antiemetics as needed. Patient tolerated advanced diet , urinated on own without difficulty, and did not require any pain medication on the floor. Patient discharged home on POD # 0 in stable condition. Total Time Total Time Spent Total Time Spent (In Minutes): 20 Total Time Includes: Examination of the Patient, Discharge Planning and Medication Reconciliation Discharge Plan Discharge Items Patient Disposition: Home - Self-Care Reason For Visit: POSTOP LAP APPENDECTOMY Discharge Diagnosis: Acute appendicitis Activity: Per Instructions section Non-emergency contact: Surgeon Call non-emergency contact if: you have any medication questions, your pain is n ot controlled, your pain is worsening, you have a fever, your temperature is above 101, your wound has increased redness, your wound has increased drainage and your wound pain has increased Follow-up/Referrals: Rebeca George PA-C [Physician Admitting Representative] - 07/24/24 10:00 am PCP,NO [Primary Care Provider] - Diet: Regular Addtl Attending Provider Instructions: Post-Surgical ~Discharge Instructions Activity Recommendations: - lifting limitation: (20 pounds for 2-3 weeks), - exercise/sex/sports limit: (nonstrenuous for 2 weeks), - driving or machine use limit: (none for at least 3 days up to 1 week if having pain and no longer taking narcotic pain medication), - Shower/bathe limit: (may shower tomorrow, no submerging incisions underwater for 10 days) Diet: - Resume previous diet SPECIAL CARE INSTRUCTIONS: - May shower. Let water run over area and pat dry. - Leave surgical glue on incisions, this will fall off on its own. - Call the surgeon's office with any questions or concerns - - (ex. temperature higher than 101 degrees F, excessive bleeding or pain). MEDICATIONS: - Resume previous medications unless instructed otherwise by your surgeon. - May alternate extra strength Tylenol and Ibuprofen as needed for mild to moderate pain -650 mg Tylenol every 6 hours as needed - Ibuprofen 600 mg every 6 hours as needed (take with food) - [place] 1 tablet every 6 hours, as needed for moderate to severe pain If taking [place] and alternating Tylenol with Ibuprofen, each [place] has 325 mg of Tylenol in each tablet. DO NOT exceed 3,000 mg of Tylenol in 24 hour period. - Recommend daily stool softener (Colace) while taking narcotic pain medication to prevent constipation or straining. Drink plenty of water daily. FOLLOW UP VISIT: - If not already scheduled, please call the office to schedule a two week follow-up appointment. Office number Pending Studies at Discharge: Yes (surgical pathology, will be reviewed at postop visit) Stand-Alone Forms: [facility], Smoking Cessation Medications and DC Order Prescriptions: New hydrocodone-acetaminophen 5-325 mg tablet 1 tab PO Q6H PRN (Reason: pain (scale score 7-10)) Qty: 10 0RF Discontinued hydrocodone-acetaminophen 5-325 mg tablet 1 tab PO Q6H PRN (Reason: pain) Qty: 4 0RF Rx Instructions: initial script Discharge Orders: Discharge Order (Routine); Ordered 07/10/24 Ordered By: Rebeca George Admission Data Admit Date/Time: 07/10/24 08:06 Attending Provider: Major Rodriguez Admit Provider: Major Rodriguez Primary Care Provider: PCP,NO Other Providers: Major Rodriguez
[2024-07-10] MEDS ORDERED: ENOXAPARIN INJ 40 MG/0.4 ML SYR SQ SCH (20:00)
== END 2024-07-10 15:01 | disposition home or self-care (01) ==
LOC: 2N 03:39 → ED 03:39